=== PATIENT | female | born 1960 | race Caucasian/White ===

== ENCOUNTER 2024-12-07 14:47 | Outpatient (CLI) | payer MEDICARE, SELFPAY | END 2024-12-07 14:48 | disposition home or self-care (01) | LOC: AMB 12-08 13:44 | PROVIDERS: PCP Family Medicine; Visit Provider Emergency Medicine | DX: S09.93XA Unspecified injury of face, initial encounter (principal); S89.91XA Unspecified injury of right lower leg, initial encounter; W09.8XXA Fall on or from other playground equipment, initial encounter; Y93.9 Activity, unspecified; Y92.830 Public park as the place of occurrence of the external cause | CPT/HCPCS: A0998 ==

== ENCOUNTER 2024-12-07 15:14 | Emergency (ER) | payer MEDICARE, SELFPAY ==
[2024-12-07] VITALS (21 sets, daily range): BP systolic 154–217; BP diastolic 79–99; PULSE 58–76; RESP 16–18; TEMP 36.4; O2SAT 95–99; BMI 35.1
--- OUTSIDE RECORDS SUMMARY | 2024-12-07 15:16 | XMS_ITS | Encounter Summary ---
Author Organization [facility] Address [address], [place] [address] Care Team Providers Care Crust Sorter Name Role Phone Osmin Cain MD Primary Care Provider [phone] Encounter Details Date Type Department Care Team (Late st Contact Info) Description 05/02/2012 Scanned History External to Transferred Record, Provider [facility] Social History Tobacco Use Types Packs/Day Years Used Date Smoking Tobacco: Never Assessed Comments Unknown Sex and Gender Information Value Date Recorded Sex Assigned at Not on file Legal Sex Female 11:55 AM CDT Gender Identity Not on file Sexual Orientation Not on file documented as of this encounter Progress Notes * Transferred Record, Provider - 05/02/2012 12:00 AM CDT documented in this encounter Plan of Treatment Not on file documented as of this encounter Visit Diagnoses Not on filedocumented in this encounter Care Teams Crust Sorter Relationship Specialty [place] [address] [place] [address] PCP - General Internal Medicine 06/07/13 documented as of this encounter
--- OUTSIDE RECORDS SUMMARY | 2024-12-07 15:16 | XMS_ITS | Clinical Summary ---
Author Organization [employer] [facility] Address [address] [place] [address] Care Team Providers Care [employer] Supervisor Name Role Phone Marion Young MD Primary Care Provider Debby Quijano MD Unavailable Unavailab Sissy Austin Unavailable [phone] Shayy Schmidt DO Unavailable [phone] Allergies No known active allergies Medications IBUPROFEN 200 MG TAB take 2 tablet (200mg) by oral route every 6 hours as needed with food 0 006 Active blood-glucose meter (BLOOD GLUCOSE MONITORING)Indicati ons:Diabetes mellitus (HC) Dispense meter, test strips, lancets covered by pt ins. 250.00 NIDDM type II - Test 1 time/day 1 Device 0 015 Active acetaminophen (TYLENOL) 325 mg tablet Take 1-2 Tablets (325-650 mg) by mouth every 6 hours if needed for Pain (For mild pain 1st choice. May take either Tylenol tablet or liquid, if both ordered.). Max acetaminophen dose: 4000mg in 24 hrs. 021 Active Blood Pressure Test Kit-Large kitIndications:Type 2 diabetes mellitus with microalbuminuria, without long-term current use of insulin (HC) As directed. Diagnosis hypertension, home use as directed. Any covered by insurance 1 Each 022 Active aspirin (ECOTRIN) 81 mg enteric coated tabletIndications:T ype 2 diabetes mellitus with microalbuminuria, without long-term current use of insulin (HC) Take 1 Tablet (81 mg) by mouth once daily with a meal. 0 023 Active lancets (sageCrowdTouch Delica Plus Lancet) 33 gauge miscIndications:Typ e 2 diabetes mellitus with microalbuminuria, without long-term current use of insulin (HC) USE TO TEST BLOOD GLUCOSE ONE TIME DAILY 100 Each 3 024 Active blood sugar diagnostic (sageCrowdTouch Ultra Test) stripIndications:Ty pe 2 diabetes mellitus with microalbuminuria, without long-term current use of insulin (HC) TEST 1 TIME/DAY. COVERED BY INX. 250.00 NIDDM TYPE II - 100 Each 3 024 Active atorvastatin (LIPITOR) 20 mg tabletIndications:P ure hyperglyceridemia Take 1 Tablet (20 mg) by mouth once daily. 100 Tablet 2 024 Active cyclobenzaprine (FLEXERIL) 10 mg tabletIndications:U pper back pain,Chronic midline low back pain without sciatica Take 1 Tablet (10 mg) by mouth 3 times daily if needed for Muscle Spasm. 025 Active hydroCHLOROthiazide 12.5 mg capsuleIndications: Essential hypertension TAKE 1 CAPSULE BY MOUTH ONCE DAILY. 90 Capsule 2 025 Active losartan 100 mg tabletIndications:M icroalbuminuria,Ess ential hypertension TAKE 1 TABLET BY MOUTH EVERY DAY 90 Tablet 1 025 Active empagliflozin (Jardiance) 10 mg tabletIndications:T ype 2 diabetes mellitus with microalbuminuria, without long-term current use of insulin (HC) Take 1 Tablet (10 mg) by mouth once daily. 100 Tablet 1 025 Active metFORMIN 1,000 mg tabletIndications:T ype 2 diabetes mellitus with microalbuminuria, without long-term current use of insulin (HC) Take 1 Tablet (1,000 mg) by mouth two times daily with meals. 200 Tablet 1 025 Active losartan (COZAAR) 100 mg tabletIndications:M icroalbuminuria,Ess ential hypertension Take 1 Tablet (100 mg) by mouth once daily. 100 Tablet 3 024 11/23 Discontinued metFORMIN (GLUCOPHAGE) 1,000 mg tabletIndications:T ype 2 diabetes mellitus with microalbuminuria, without long-term current use of insulin (HC) TAKE 1 TABLET (1000 MG) BY MOUTH TWICE A DAY WITH MEALS 180 Tablet 025 12/04 Discontinued( Reorder (E-cancel not sent)) empagliflozin (Jardiance) 10 mg tabletIndications:T ype 2 diabetes mellitus with microalbuminuria, without long-term current use of insulin (HC) TAKE 1 TABLET BY MOUTH EVERY DAY 60 Tablet 025 12/04 Discontinued( Reorder (E-cancel not sent)) Active Problems Problem Noted Date Diagnosed Date Carotid aneurysm, right 08/30/2023 Malignant neoplasm of female breast, unspecified estrogen receptor status, unspecified laterality, unspecified site of breast 01/20/2022 Microalbuminuria 11/21/2014 Type 2 diabetes mellitus wit h microalbuminuria, without long-term current use of insulin 08/22/2014 Unspecified essential hypertension 10/19/2007 Adjustment disorder with depressed mood 10/19/19 08 Overview (10/19/2007): no suicidal Pure hyperglyceridemia 01/06/2007 Migraine, unspecified, witho ut mention of intractable migraine without mention of status migrainosus 11/03/2005 Ductal carcinoma in situ of right breast Resolved Problems Problem Noted Date Diagnosed Date Resolved Date Pap smear for cervical cancer screening 03/24/2023 03/08/2024 Overview (03/08/2024): 02/2023 UNS/ HPV negative 02/2024 NIL/HPV neg. Pure hyperglyceridemia 09/28/201709/28 Arthritis of knee 05/24/2008 12/14/2016 Elevated blood pressure read ing without diagnosis of hypertension 09/14/2007 10/19/2007 Synovial cyst, unspecified 09/14/2007 0 12/14/2016 Overview (09/14/2007): Tia Cuevas MD Neurosurgery saw her and then she had this aspirated and injected with steroids 01/27/06 Impaired fasting glucose 02/02/200702/2015 Overview (02/02/2007): 102 105 Other abnormal glucose 01/19/200702/02 Overview (01/19/2007): 102 Depressive disorder, not elsewhere classified 01/07/20 07 10/19/2007 Lumbago 11/11/2005 12/14/2016 Depressive disorder, not elsewhere classified 11/04/19 06 11/03/2005 PAIN IN JOINT, UPPER ARM 04/20/2001 Lumbago 2000 11/03/2005 Cough 03/15/2000 11/03/2005 PAIN, ABDOMINAL 12/17/1999 11/03/2005 Encounters Date Type Department Care Team Description 12/07/2024 Nurse Triage [facility] [address] [place] [address] Marion Young MD Neurologic Problem (Fall, hit head, numbness to right side of face, leg injury) 12/04/2024 8:00 AM CDT Office Visit [facility] [address] [place] [address] Marion Young MD Diabetes 12/04/2024 Travel 12/03/2024 Refill [facility] [address] [place] [address] Marion Young MD Refill Request (Jardiance) 11/21/2024 Refill [facility] [address] [place] [address] Marion Young MD Refill Request (Losartan) 10/12/2024 Orders Only [facility] Scanner 1 scan: (1-Ord) [facility], 10/12/2024 10/09/2024 8:41 AM MEDICAL DEVICE - 10/09/2024 11:59 PM MEDICAL DEVICE Hospital Encounter [facility] [place] [address] [place] [address] Marion Young MD Finkel, Joann M, PT 10/09/2024 Travel 10/05/2024 Refill [facility] [address] [place] [address] Marion Young MD Refill Request (Jardiance, Hydrochlorothiazide ) 09/25/2024 7:54 AM MEDICAL DEVICE - 09/25/2024 11:59 PM MEDICAL DEVICE Hospital Encounter [facility] [place] [address] [place] [address] Marion Young MD Finkel, Joann M, PT 09/25/2024 Travel 09/13/2024 9:17 AM MEDICAL DEVICE - 09/13/2024 11:59 PM MEDICAL DEVICE Hospital Encounter [facility] [place] [address] [place] [address] Marion Young MD Finkel, Joann M, PT 09/13/2024 Travel 09/08/2024 Refill [facility] [address] [place] [address] Marion Young MD Refill Request (Metformin) from Last 3 Months Immunizations Immunization Administration Dates Next Due COVID-19 VACCINE SPIKEVAX (M ODERNA 50MCG/0.5ML) 12YO+ PFS 06/05/2024,08/30/2023 COVID-19 vaccine (Moderna 100mcg/0.5mL) PF, MDV 01/14/2021,12/17/2020 COVID-19 vaccine (Moderna 50mcg/0.5mL) 12YO+ BIVALENT PF, MDV 08/24/2022 COVID-19 vaccine (Moderna [place] tomasa 50mcg/0.25mL) PF, MDV 01/20/2022,08/05/2021 HepA-HepB (Twinrix) 09/28/2017,08/28/2015,2014 Influenza, IIV4 08/24/2022,,04/24/2020,2018,04/25/2015 Influenza, Inactivated AIIV4 (Age 65+ Years) Preserv Free 08/30/2023 Influenza, Inactivated IIV3 (Age 65+ Years) Preserv Free 06/05/2024 Pneumococcal Conj 20-valent (Prevnar 20) 02/28/2024 Td (Age >=7 Years) 12/17/1997 Td, Preservative Free (age > = 7 Years) 01/18/2018,06/01/2005 Tdap 01/19/2007 Zoster (Shingrix-RZV, recombinant) 04/26/2018, Family History Medical History Relation Name Comments Hypertension Father Cancer Maternal Grandmother stomach / colon ? cancer COPD Mother Osteoarthritis Mother Osteoporosis Mother Blood Disease Paternal Aunt lupus and MS Clotting disorder Sister Susana Diabetes Sister Susana Other Sister Susana She's always s ick Anesthesia Problem No Family History Cancer-breast No Family History Cancer-colon No Family History Cancer-ovarian No Family History Cancer-pancreatic No Family History Cancer-prostate No Family History Coronary artery disease No Family History Melanoma No Family History Relation Name Status Comments Father Maternal Grandfather Maternal Grandmother Mother Alive Paternal Aunt Alive Paternal Grandfather Paternal Grandmother Sister Susana Alive Social History Tobacco Use Types Packs/Day Years Used Date Smoking Tobacco: Never Passive Smoke Exposure: Never Smokeless Tobacco: Never Tobacco Cessation:Counseling Given: Yes Alcohol Use Standard Drinks/Week Comments Yes 0 (1 standard drink = 0.6 oz pure alcohol) Twice a month or less; 1-2 drink at a time PHQ-2 Answer Date Recorded PHQ-2 TOTAL SCORE 0 02/28/2024 Social Connections Answer Date Recorded Do you often feel lonely or isolated from those around you? 0 02/28/2024 Financial Resource Strain Answer Date R ecorded Difficulty of Paying Living Expenses 3 02/28/2024 Difficulty of Paying Living Expenses Not on file 02/28/2024 Food Insecurity Answer Date Recorded Do you worry your food will run out before you are able to buy more? 1 02/28/2024 Transportation Needs Answer Date Record ed Does lack of transportation keep you from medica l appointments? 1 02/28/2024 Does lack of transportation keep you from work, meetings or getting things that you need? 1 02/28/2024 Housing Stability Answer Date Recorded What is your housing situation today? 1 02/28/2024 Utilities Answer Date Recorded Do you have trouble paying f or utilities (for example, heat, electricity, water, phone)? 1 02/28/2024 Comments No Sex and Gender Information Value Date Recorded Sex Assigned at Not on file Legal Sex Female 5:25 AM MEDICAL DEVICE Gender Identity Not on file Sexual Orientation Not on file Occupation Industry Job Start Date Job End Date Retired Not on file Not on file Not on file Obstetrics History Para Term AB IAB SAB Ectopic Multiple Livin g Live Births 4 4 4 0 0 0 0 0 4 Date Outcome GA Total Labor Labor/2nd/3rd Weight Sex Type Anes PTL Renetta A1 A5 Name Clin 11/11 Term F Vag Vicki 06/13 Term M Vag Matheau 11/11 Term F Vag Maryse 04/07 Term F Vag Laura Last Filed Vital Signs Vital Sign Reading Time Taken Comments Blood Pressure 118/62 12/04/2024 8:03 AM CDT Pulse 63 12/04/2024 8:03 AM CDT Temperature 36.9 C (98.5 F) 11/25/2021 11:09 AM CDT Respiratory Rate 18 11/25/2021 11:0 9 AM CDT Oxygen Saturation 97% 12/04/2024 8:03 AM CDT Inhaled Oxygen Concentration - - Weight 87.4 kg (192 lb 11.2 oz) 12/04/2024 8:03 AM CDT Height 158 cm (5' 2.21) 02/28/2024 8:04 AM CDT Body Mass Index 35.01 02/28/2024 8:04 AM CDT Plan of Treatment Upcoming Encounters Date Type Department Care Team (Late st Contact Info) Description 06/04/2025 8:40 AM CDT Office Visit [facility] [address] [place], [place] [id number] [place] [address] [place], [place] [id number] Health Maintenance Due Date Last Done Comments RSV vaccine for adults or (1 - Risk 60-74 years 1-dose series) 2018 DEXA/DXA scan for age 65+ 2023 07/28/2021 COVID-19 vaccine series (6 - Moderna risk season) 2024 06/05/2024, 08/30/2023, 08/24/2022, Additional history exists BMI (ht and wt on same day) for age 18+ 02/27/2025 02/28/2024, 08/30/2023, 04/21/2023, Additional history exists Depression screening for age 12+ 02/27/2025 02/28/2024, 02/22/2023, 01/20/2022, Additional history exists Medicare Wellness for age 65+ 02/28/2025 02/28/2024 Mammogram for age 45-75 05/10/2025 05/10/20 24, 04/27/2023, 02/23/2022, Additional history exists Fecal testing sDNA-FIT ([place] guard) for age 45-75 03/05/2026 03/05/2023 Tetanus booster 01/19/2028 01/18/2018, 01/2007, 06/01/2005, Additional history exists Lipids for age 45-75 12/04/2029 12/04/2024, 08/30/2023, 08/24/2022, Additional history exists Tdap Completed 01/19/2007 Zoster (shingles) series for age 50+ Completed 04/26/2018, 01/18/2018 Hepatitis C screening for ag e 18-79 Completed 08/03/2018, 07/17/2014 Pneumococcal series for age 50+ Completed Influenza Vaccine Completed 06/05/2024, , 08/24/2022, Additional history exists Goals Goal Patient Goal Type Associated Problems Recent Progress Patient-Stated? Author BLOOD PRESSURE - MAINTAINS BP less than 140/90 Blood Pressure No Viky Garnica MD Procedures Procedure Name Priority Date/Time Associated Diagnosis Comments URINE ALBUMIN TO CREATININE RATIO, RANDOM Routine 12/04/2024 8:00 AM CDT Type 2 diabetes mellitus with microalbuminuria, without long-term current use of insulin (HC) BASIC METABOLIC PANEL Routine 12/04/2024 7:52 AM CDT Type 2 diabetes mellitus with microalbuminuria, without long-term current use of insulin (HC) Essential hypertension LIPID PANEL W REFLEX MEASURED LDL Routine 12/04/2024 7:52 AM CDT Type 2 diabetes mellitus with microalbuminuria, without long-term current use of insulin (HC) Pure hyperglyceridemia HEMOGLOBIN A1C MONITORING (POCT) Routine 12/04/2024 7:51 AM CDT Type 2 diabetes mellitus with microalbuminuria, without long-term current use of insulin (HC) SCAN-EYE EXAM 10/12/2024 12:00 AM MEDICAL DEVICE XR MAMMO SIMONE BILAT SCREEN Routine 05/10/2024 9:12 AM CDT Visit for screening mammogram SDNA-FIT EXTERNAL (COLOGUARD) Routine 03/05/2023 8:35 AM CDT Screen for colon cancer XR DXA BONE DENSITY 2 SITES AXIAL Routine 07/28/2021 3:46 PM MEDICAL DEVICE Intraductal carcinoma in situ of right breast ANTI HCV Routine 08/03/2018 3:16 PM MEDICAL DEVICE Need for hepatitis C screening test from Last 3 Months or Most Recently Relevant to Health Maintenance Results * URINE ALBUMIN TO CREATININE RATIO, RANDOM (12/04/2024 8:00 AM CDT) ALB RAND URINE 13.9 mg/L 12/04/2024 5:37 PM CDT [facility] CREATININE,URIN E 1.00 g/L 12/04/2024 5:37 PM CDT [facility] ALBUMIN TO CREATININE RATIO,RAND UR 13.9 <30.0 mg/g creat 12/04/2024 5:37 PM CDT [facility] Urine URINE SPECIMEN / Unknown Non-Blood / Unknown 12/04/2024 8:00 AM CDT 12/04/2024 8:00 AM CDT [facility] - 12/04/2024 5:37 PM CDT If Albumin to Creatinine Ratio is elevated, consider the following: Elevations seen with incipient nephropathy associated with diabetes mellitus or hypertension. Stress, exercise,hematuria, and urinary tract infection may also produce elevated results. If clinically indicated, confirm with 24 Hour Albumin to Creatinine Ratio. Marion Young MD URINE Final R esult [facility] [address] [place] [address], * (ABNORMAL) LIPID PANEL W REFLEX MEASURED LDL (12/04/2024 7:52 AM CDT) CHOLESTEROL, TOTAL 161 <200 mg/dL [facility] HDL CHOLESTEROL 45(L) > OR = 50 mg/dL [facility] TRIGLYCERIDES 146 <150 mg/dL [facility] LDL-CHOLESTEROL 91 mg/dL (calc) [facility] Comment: Reference range: <100 Desirable range <100 mg/dL for primary prevention; <70 mg/dL for patients with CHD or diabetic patients with > or = 2 CHD risk factors. LDL-C is now calculated using the Nickolas-Us calculation, which is a validated novel method providing better accuracy than the Friedewald equation in the estimation of LDL-C. Nickolas SS et al. QUNICY. 2013;310(19): 3735-6435 (http://education.[employer].Symtext/faq/VYU950) CHOL/HDLC RATIO 3.6 <5.0 (calc) [facility] NON HDL CHOLESTEROL 116 <130 mg/dL (calc) [facility] Comment: For patients with diabetes plus 1 major ASCVD risk factor, treating to a non-HDL-C goal of <100 mg/dL (LDL-C of <70 mg/dL) is considered a therapeutic option. Blood BLOOD SPECIMEN / Unknown 12/04/2024 7:52 AM CDT 12/04/2024 7:52 AM CDT Marion Young MD CHEMISTRY Final R esult Performing Organization Address City/[facility]/ZIP Co de Phone Number [employer] [facility] [address] [place] [address], [place] [phone] [facility] [address] [place] [address] * (ABNORMAL) BASIC METABOLIC PANEL (12/04/2024 7:52 AM CDT) GLUCOSE 136(H) 65 - 99 mg/dL [facility] Comment: Fasting reference interval For someone without known diabetes, a glucose value >125 mg/dL indicates that they may have diabetes and this should be confirmed with a follow-up test. UREA NITROGEN (BUN) 17 7 - 25 mg/dL [facility] CREATININE 0.64 0.50 - 1.05 mg/dL [facility] EGFR 97 > OR = 60 mL/min/1. 73m2 [facility] BUN/CREATININE RATIO SEE NOTE: 6 - 22 (calc) [facility] Comment: Not Reported: BUN and Creatinine are within reference range. SODIUM 143 135 - 146 mmol/L [facility] POTASSIUM 4.8 3.5 - 5.3 mmol/L [facility] CHLORIDE 110 98 - 110 mmol/L [facility] CARBON DIOXIDE 24 20 - 32 mmol/L [facility] ELECTROLYTE BALANCE 9 7 - 17 mmol/L (calc) [facility] CALCIUM 9.4 8.6 - 10.4 mg/dL [facility] Blood BLOOD SPECIMEN / Unknown 12/04/2024 7:52 AM CDT 12/04/2024 7:52 AM CDT Marion Young MD CHEMISTRY Final R esult [employer] [facility] [address] [place] [address], [place] [phone] [facility] [address] [place] [address] * (ABNORMAL) HEMOGLOBIN A1C MONITORING (POCT) (12/04/2024 7:51 AM CDT) POC HEMOGLOBIN A1C 6.6(H) <6.0 % OF TOTAL HGB [facility] Comment: Any point of care results exhibiting inconsistency with the patient's clinical status should be repeated using a different testing method. Blood BLOOD SPECIMEN / Unknown 12/04/2024 7:51 AM CDT 12/04/2024 7:51 AM CDT us Marion Young MD CHEMISTRY Final R esult [facility] [address] [place] [address], [facility] [address] [place] [address] * SCAN-EYE EXAM (10/12/2024 12:00 AM MEDICAL DEVICE) us Scanner OTHER Final Result * XR MAMMO SIMONE BILAT SCREEN (05/10/2024 9:12 AM CDT) Anatomical Region Laterality Modality BREASTS, Breast Left, Breast Right Bilateral Mammography Impressions 05/10/2024 4:12 PM CDT There is no radiographic evidence for malignancy. Recommend annual mammograms. MAMMOGRAM ASSESSMENT: ACR 2 Benign PATIENTS: You will also receive a letter with your examination results in an easy to read format. If you have questions about your results, please contact your referring provider. Narrative 05/10/2024 4:12 PM CDT For Patients: As a result of the Century Cures Act, medical imaging exams and procedure reports are released immediately into your electronic medical record. You may view this report before your referring provider. If you have questions, please contact your health care provider. XR MAMMO SIMONE BILAT SCREEN [[id number]] CLINICAL HISTORY: This is an asymptomatic 63 y.o. patient. INDICATION FOR EXAM: Mammogram Screening. TECHNIQUE: CC & MLO views were obtained. This study was evaluated with the assistance of Computer-Aided Detection. Breast Tomosynthesis was used in interpretation. COMPARISON FILMS: Yes 04/27/23 [facility] 02/23/22 [facility] FINDINGS: There are scattered areas of fibroglandular density. No suspicious masses or microcalcifications. There are post treatment changes of right breast. Marion Young MD MAMMO Final R esult * SDNA-FIT EXTERNAL (COLOGUARD) (03/05/2023 8:35 AM CDT) NONINV COLON CA DNA+OCC BLD SCRN STL-IMP Negative Negative 03/13/2023 1:15 AM CDT [facility] (CLIA #:[id number]) Comment: NEGATIVE TEST RESULT. A negative Cologuard result indicates a low likelihood that a colorectal cancer (CRC) or advanced adenoma (adenomatous polyps with more advanced pre-malignant features) is present. The chance that a person with a negative Cologuard test has a colorectal cancer is less than 1 in 1500 (negative predictive value >99.9%) or has an advanced adenoma is less than 5.3% (negative predictive value 94.7%). These data are based on a prospective cross-sectional study of 10,000 individuals at average risk for colorectal cancer who were screened with both Cologuard and colonoscopy. (Chance Marie. et al, N Engl J Med 2014;370(14):8749-2262) The normal value (reference range) for this assay is negative. COLOGUARD RE-SCREENING RECOMMENDATION: Periodic colorectal cancer screening is an important part of preventive healthcare for asymptomatic individuals at average risk for colorectal cancer. Following a negative Cologuard result, the [place] [employer] and U.S. Multi-Society Task Force screening guidelines recommend a Cologuard re-screening interval of 3 years. References: [place] [employer] Guideline for Colorectal Cancer Screening: https://www.cancer.org/cancer/lsgbs-wrkjpz-ynuohy/uyhenbgmj-egnabcfpm-munklff/ac s-rec ommendations.html.; Chan DK, Idalia CORBETT, Khai GARCIA, Colorectal Cancer Screening: Recommendations for Physicians and Patients from the U.S. Multi-Society Task Force on Colorectal Cancer Screening , Am J Gastroenterology 2017; 112:3528-8549. TEST DESCRIPTION: Composite algorithmic analysis of stool DNA-biomarkers with hemoglobin immunoassay. Quantitative values of individual biomarkers are not reportable and are not associated with individual biomarker result reference ranges. Cologuard is intended for colorectal cancer screening of adults of either sex, 45 years or older, who are at average-risk for colorectal cancer (CRC). Cologuard has been approved for use by the U.S. FDA. The performance of Cologuard was established in a cross sectional study of average-risk adults aged 50-84. Cologuard performance in patients ages 45 to 49 years was estimated by sub-group analysis of near-age groups. Colonoscopies performed for a positive result may find as the most clinically significant lesion: colorectal cancer [4.0%], advanced adenoma (including sessile serrated polyps greater than or equal to 1cm diameter) [20%] or non- advanced adenoma [31%]; or no colorectal neoplasia [45%]. These estimates are derived from a prospective cross-sectional screening study of 10,000 individuals at average risk for colorectal cancer who were screened with both Cologuard and colonoscopy. (Chance Marie. et al, N Engl J Med 2014;370(14):1694-0449.) Cologuard may produce a false negative or false positive result (no colorectal cancer or precancerous polyp present at colonoscopy follow up). A negative Cologuard test result does not guarantee the absence of CRC or advanced adenoma (pre-cancer). The current Cologuard screening interval is every 3 years. ([place] [employer] and U.S. Multi-Society Task Force). Cologuard performance data in a 10,000 patient pivotal study using colonoscopy as the reference method can be accessed at the following location: www.[employer].Symtext/results. Additional description of the Cologuard test process, warnings and precautions can be found at www.Contents Firstrd.com. Stool specimen (specimen) (Rectum) 03/05/2023 8:35 AM CDT 03/06/2023 5:27 PM CDT us Marion Magali Hannah MD URINE Final R esult [facility] (CLIA #:[id number]) [address] [id number] [address], * XR DXA BONE DENSITY 2 SITES AXIAL (07/28/2021 3:46 PM MEDICAL DEVICE) Anatomical Region Laterality Modality Spine, HIPS, HIPL, HIPR Computed Radiography 07/28/2021 3:46 PM MEDICAL DEVICE Narrative 07/28/2021 9:53 PM MEDICAL DEVICE For Patients: As a result of the Century Cures Act, medical imaging exams and procedure reports are released immediately into your electronic medical record. You may view this report before your referring provider. If you have questions, please contact your health care provider. EXAM: XR DXA BONE DENSITY 2 SITES AXIAL LOCATION: [facility] DATE/TIME: 07/28/2021 3:46 PM INDICATION: I. Other (screening-at minimum one option in 2-5 must be selected) - z13.820. Intraductal Carcinoma In Situ Of Right Breast COMPARISON: None. TECHNIQUE: Dual-energy x-ray absorptiometry performed with routine technique. FINDINGS: Lumbar Spine: L1-L4: BMD: 1.234 g/cm2. T-score: 0.5. Z-score: 1.1 RIGHT Hip Total: BMD: 0.951 g/cm2. T-score: -0.4. Z-score: 0.1 RIGHT Hip Femoral neck: BMD: 0.999 g/cm2. T-score: -0.3. Z-score: 0.6 LEFT Hip Total: BMD: 1.060 g/cm2. T-score: 0.4. Z-score: 1.0 LEFT Hip Femoral neck: BMD: 1.067 g/cm2. T-score: 0.2. Z-score: 1.1 WHO Criteria: Normal: T score at or above -1 SD Osteopenia: T score between -1 and -2.5 SD Osteoporosis: T score at or below -2.5 SD FRAX Results: 10 year probability of major osteoporotic fracture is 12.8%, and of hip fracture is 0.2%, based on right femoral neck BMD. RECOMMENDATIONS: Consider treatment if major osteoporotic fracture score is greater than or equal to 20%. Consider treatment if hip fracture score is greater than or equal to 3%. IMPRESSION: NORMAL. Bone mineral density measurements are within normal limits using T score. Procedure Note Rai Sandoval MD - 07/28/2021 For Patients: As a result of the Cures Act, medical imagingexams and procedure reports are released immediately into your electronicmedical record. You may view this report before your referring provider.If you have questions, please contact your health care provider. EXAM: XR DXA BONE DENSITY 2 SITES AXIAL LOCATION: [facility] DATE/TIME: 07/28/2021 3:46 PM INDICATION: I. Other (screening-at minimum one option in 2-5 must beselected) - z13.820. Intraductal Carcinoma In Situ Of Right Breast COMPARISON: None. TECHNIQUE: Dual-energy x-ray absorptiometry performed with routinetechnique. FINDINGS: Lumbar Spine: L1-L4: BMD: 1.234 g/cm2. T-score: 0.5. Z-score: 1.1 RIGHT Hip Total: BMD: 0.951 g/cm2. T-score: -0.4. Z-score: 0.1 RIGHT Hip Femoral neck: BMD: 0.999 g/cm2. T-score: -0.3. Z-score: 0.6 LEFT Hip Total: BMD: 1.060 g/cm2. T-score: 0.4. Z-score: 1.0 LEFT Hip Femoral neck: BMD: 1.067 g/cm2. T-score: 0.2. Z-score: 1.1 WHO Criteria: Normal: T score at or above -1 SD Osteopenia: T score between -1 and -2.5 SD Osteoporosis: T score at or below -2.5 SD FRAX Results: 10 year probability of major osteoporotic fracture is 12.8%,and of hip fracture is 0.2%, based on right femoral neck BMD. RECOMMENDATIONS: Consider treatment if major osteoporotic fracture score is greater than orequal to 20%. Consider treatment if hip fracture score is greater than orequal to 3%. IMPRESSION: NORMAL. Bone mineral density measurements are within normallimits using T score. us Sissy PINA DEXA Final Re sult * ANTI HCV (08/03/2018 3:16 PM MEDICAL DEVICE) HEPATITIS C ANTIBODY Non-React felix Non-React felix 08/04/2018 7:50 PM MEDICAL DEVICE [facility] Comment:Antibodies to HCV no t detected; does not exclude the possibility of exposure to HCV. Blood BLOOD SPECIMEN / Unknown Butterfly / Unknown 08/03/2018 3:16 PM MEDICAL DEVICE 08/03/2018 3:16 PM MEDICAL DEVICE us Marion Young MD SEND OUTS Final R esult [facility] [address] [place] [address], [place] from Last 3 Months or Most Recently Relevant to Health Maintenance Insurance [facility] AETNA Advance Directives * Full Code (Latest Code Status on File) Date Activated Date Inactivated Comments 04/22/2021 12:48 PM 04/22/2021 7:18 PM Question Answer Comments Code Status Discussion: Not Discussed * Full Code Date Activated Date Inactivated Comments 04/10/2021 8:56 AM 04/10/2021 6:19 PM Question Answer Comments Code Status Discussion: Not Discussed Care Teams Oil Well Services Supervisor Relationship Specialty [place] [address] [place] [address] PCP - General Family Practice 07/20/16 [place] [address] [place] [address] Surgery - General 03/11/21 Sissy Nam [employer]BS [address] [place] [address] Oncology 05/09/21 [place] [address] Radiation Oncology 05/09/21
--- OUTSIDE RECORDS SUMMARY | 2024-12-07 15:16 | XMS_ITS | Encounter Summary ---
Author Organization [facility] Address [address] [place] [address] Care Team Providers Care Senior Hr Business Partner Name Role Phone Osmin Cain MD Primary Care Provider [phone] Encounter Details Date Type Department Care Team (Late st Contact Info) Description 02/07/2013 Consent for Procedure/Treatme nt [facility] INFORMED CONSENT RECORD Social History Tobacco Use Types Packs/Day Years Used Date Smoking Tobacco: Never Assessed Comments Unknown Sex and Gender Information Value Date Recorded Sex Assigned at Not on file Legal Sex Female 11:55 AM CDT Gender Identity Not on file Sexual Orientation Not on file documented as of this encounter Progress Notes * [facility], PROVIDER - 02/07/2013 12:00 AM CDT documented in this encounter Plan of Treatment Not on file documented as of this encounter Visit Diagnoses Not on filedocumented in this encounter Care Teams Senior Hr Business Partner Relationship Specialty [place] [address] [place] [address] PCP - General Internal Medicine 06/07/13 documented as of this encounter
--- OUTSIDE RECORDS SUMMARY | 2024-12-07 15:16 | XMS_ITS | Clinical Summary ---
Author Organization [facility] Address [address] [address] Care Team Providers Care Waste Management Recycling Technician Name Role Phone Osmin Cain MD Primary Care Provider [phone] Source Comments You are receiving this document as you are listed as the primary care provider,follow-up provider, or the patient has been referred to you for consultation.This is in compliance with the Medicare and[place] Health[employer] EHR Incentive Program,which states Providers who transition their patient to another setting of careor provider of care or refers their patient to another provider of care shouldprovide summary care record for each transition of care or referral. [facility] Allergies No known active allergies Medications losartan (COZAAR) 100 MG tablet Take 100 mg by mouth. 12/14/2016 Active atorvastatin (LIPITOR) 20 MG tablet Take 20 mg by mouth. 12/14/2016 Active Active Problems Problem Noted Date Diagnosed Date Elevated BP 03/29/2013 Benign neoplasm of colon 02/07/2013 Occult blood positive stool 12/30/2012 Prediabetes 12/29/2012 Hypertriglyceridemia 12/29/2012 Metabolic syndrome 11/18/2012 Degenerative arthritis of knee 11/02/2012 Obesity 11/02/2012 Resolved Problems Problem Noted Date Diagnosed Date Resolved Date Degenerative arthritis of left knee 11/14/2012 11/18/2012 Hyperlipidemia with target LDL less than 130 3 11/18/2012 Overview (04/24/2015): ICD 10 HTN (hypertension), benign 11/02/2012 0 12/29/2012 Immunizations Immunization Administration Dates Next Due Tdap 04/21/2013 Social History Tobacco Use Types Packs/Day Years Used Date Smoking Tobacco: Never Smokeless Tobacco: Never Alcohol Use Standard Drinks/Week Comments Yes 0 (1 standard drink = 0.6 oz pur e alcohol) once in a while Comments Unknown Sex and Gender Information Value Date Recorded Sex Assigned at Not on file Legal Sex Female 11:55 AM CDT Gender Identity Not on file Sexual Orientation Not on file Last Filed Vital Signs Vital Sign Reading Time Taken Comments Blood Pressure 163/93 06/13/2017 2:18 PM CDT Pulse 77 06/13/2017 2:18 PM CDT Temperature 36.9 C (98.5 F) 06/13/2017 2:18 PM CDT Respiratory Rate 16 06/13/2017 2:18 PM CDT Oxygen Saturation 98% 05/11/2013 10:57 AM CDT Inhaled Oxygen Concentration - - Weight 96.6 kg (213 lb) 06/13/2017 2:18 PM CDT Height 160 cm (5' 3) 06/13/2017 2:18 PM CDT Body Mass Index 37.73 06/13/2017 2:18 PM CDT Plan of Treatment Health Maintenance Due Date Last Done Comments Hep C Screening (Preventive Services) 1960 Adult Preventive Visit 1976 Pneumococcal Vaccine 50+ Yrs (1 of 1 - PCV) 2008 Zoster/Shingles Vaccine (1 o f 2) 2008 Mammogram 01/20/2013 01/21/2012 Colonoscopy 02/08/2016 02/07/2013, 02/07/2013 Cholesterol 11/02/2017 11/02/2012 DTaP/Tdap/Td Vaccine (3 - Tdap) 04/21/2023 04/21/2013, 01/19/2007, 12/17/1997 COVID-19 Vaccine ( - 2023-2 5 season) 2024 Influenza Vaccine (#1) 2024 RSV Vaccine (1 - 1-dose 75+ series) 2033 HepA Vaccine Aged Out 08/28/2015, 06/07/2015 No longer eligible based on patient's age to complete this topic HepB Vaccine Aged Out No longer eligi ble based on patient's age to complete this topic Hib Vaccine Aged Out No longer eligi ble based on patient's age to complete this topic IPV (Polio) Vaccine Aged Out No longe r eligible based on patient's age to complete this topic MCV4 Vaccine Aged Out No longer eligi ble based on patient's age to complete this topic Meningococcal B Vaccine Aged Out No l onger eligible based on patient's age to complete this topic Procedures Procedure Name Priority Date/Time Associated Diagnosis Comments COLONOSCOPY Routine 02/07/2013 8:30 AM CDT Nonspecific (abnormal) findings on radiological and other examination of gastrointestinal tract LIPID PANEL & DIRECT LDL (IF NEEDED) Routine 11/02/2012 9:53 AM CDT Hyperlipidemia LDL goal < 130 from Last 3 Months or Most Recently Relevant to Health Maintenance Results * COLONOSCOPY [[id number]] (02/07/2013 8:30 AM CDT) 02/07/2013 8:30 AM CDT Narrative GI ([facility]) - 02/07/2013 9:00 AM CDT Indications: Heme positive stool Providers: Jassi Sierra MD, Katalina Joseph RN Referring MD: Medicines: Fentanyl IV 100 mcgs, Versed/Midazolam IV 4 mgs Complications: No immediate complications. Procedure: Pre-Anesthesia Assessment: - The risks and benefits of the procedure and the sedation options and risks were discussed with the patient. All questions were answered and informed consent was obtained. - Pre-procedure physical examination revealed no contraindications to sedation. - Airway Examination: normal oropharyngeal airway and neck mobility. - Mental Status Examination: normal. Airway Examination: normal oropharyngeal airway and neck mobility. Respiratory Examination: clear to auscultation. CV Examination: normal. - ASA Grade Assessment: I - A normal, healthy patient. After I obtained informed consent, the scope was passed under direct vision. Prior to sedation, patient identity and procedure was reverified. Throughout the procedure, the patient's blood pressure, pulse, and oxygen saturations were monitored continuously. The Colonoscope was introduced through the anus and advanced to the cecum, identified by appendiceal orifice & ileocecal valve. The colonoscopy was performed without difficulty. The patient tolerated the procedure well. The quality of the bowel preparation was excellent. Findings: A few small-mouthed diverticula were found in the sigmoid colon. Four sessile polyps were found in the transverse colon and in the ascending colon. The polyps were 5 to 9 mm in size. These polyps were removed with a hot snare. Resection and retrieval were complete. A sessile polyp was found in the sigmoid colon. The polyp was 4 mm in size. The polyp was removed with a hot snare. Resection and retrieval were complete. A semi-sessile polyp was found in the sigmoid colon. The polyp was 14 mm in size. The polyp was removed with a hot snare. Resection and retrieval were complete. Area was successfully injected with 2 mL Natalie ink for tattooing. Internal hemorrhoids were found during retroflexion and were mild. The exam was otherwise without abnormality. Impression: - Diverticulosis in the sigmoid colon. - Four 5 to 9 mm polyps in the transverse colon and in the ascending colon. Resected and retrieved. - One 4 mm polyp in the sigmoid colon. Resected and retrieved. - One 14 mm polyp in the sigmoid colon. Resected and retrieved. - Internal hemorrhoids. - The examination was otherwise normal. Recommendation: - Use fiber, for example Citrucel, Fibercon, Konsyl or Metamucil. - Await pathology results. - No aspirin, ibuprofen, naproxen, or other non-steroidal anti-inflammatory drugs for 1 week after polyp removal. - Please inform your siblings and children that you had a polyp, so they should have colonoscopy when they turn 40 years old. Procedure Code(s): --- Professional --- 60976, Colonoscopy, flexible, proximal to splenic flexure; with removal of tumor(s), polyp(s), or other lesion(s) by snare technique 82207, 59, Colonoscopy, flexible, proximal to splenic flexure; with directed submucosal injection(s), any substance Diagnosis Code(s): --- Professional --- 211.3, Benign neoplasm of colon 455.0, Internal hemorrhoids without mention of complication 792.1, Nonspecific abnormal findings in stool contents 562.10, Diverticulosis of colon (without mention of hemorrhage) CPT (R) 2011 [employer]. All Rights Reserved. The codes documented in this report are preliminary and upon carpenter railcar review may be revised to meet current compliance requirements. Attending Participation: Jassi Sierra MD 02/07/2013 9:00 AM Number of Addenda: 0 Note Initiated On: 02/07/2013 8:30 AM Procedure Note Jassi Sierra MD - 02/07/2013 Indications: Heme positive stool Providers: Jassi Sierra MD, Katalina Joseph, RN Referring MD: Medicines: Fentanyl IV 100 mcgs, Versed/Midazolam IV 4 mgs Complications: No immediate complications. Procedure: Pre-Anesthesia Assessment: - The risks and benefits of the procedure and the sedation options and risks were discussed with the patient. All questions were answered and informed consent was obtained. - Pre-procedure physical examination revealed no contraindications to sedation. - Airway Examination: normal oropharyngeal airway and neck mobility. - Mental Status Examination: normal. Airway Examination: normal oropharyngeal airway and neck mobility. Respiratory Examination: clear to auscultation. CV Examination: normal. - ASA Grade Assessment: I - A normal, healthypatient. After I obtained informed consent, the scope was passed under direct vision. Prior to sedation, patient identity and procedure was reverified. Throughout the procedure, the patient's blood pressure, pulse, and oxygen saturations were monitored continuously. The Colonoscope was introduced through the anus and advanced to the cecum, identified by appendiceal orifice & ileocecal valve. The colonoscopy was performed without difficulty. The patient tolerated the procedure well. The quality of the bowel preparation was excellent. Findings: A few small-mouthed diverticula were found in the sigmoid colon. Four sessile polyps were found in the transverse colon and in the ascending colon. The polyps were 5 to 9 mm in size. These polyps were removed with a hot snare. Resection and retrieval were complete. A sessile polyp was found in the sigmoid colon. The polyp was 4 mm in size. The polyp was removed with a hot snare. Resection and retrieval were complete. A semi-sessile polyp was found in the sigmoid colon. The polyp was 14 mm in size. The polyp was removed with a hot snare. Resection and retrieval were complete. Area was successfully injected with 2 mL Natalie ink for tattooing. Internal hemorrhoids were found during retroflexion and were mild. The exam was otherwise without abnormality. Impression: - Diverticulosis in the sigmoid colon. - Four 5 to 9 mm polyps in the transverse colon and in the ascending colon. Resected and retrieved. - One 4 mm polyp in the sigmoid colon. Resected and retrieved. - One 14 mm polyp in the sigmoid colon. Resected and retrieved. - Internal hemorrhoids. - The examination was otherwise normal. Recommendation: - Use fiber, for example Citrucel, Fibercon, Konsyl or Metamucil. - Await pathology results. - No aspirin, ibuprofen, naproxen, or other non-steroidal anti-inflammatory drugs for 1 week after polyp removal. - Please inform your siblings and children that you had a polyp, so they should have colonoscopy when they turn 40 years old. Procedure Code(s): --- Professional --- 52741, Colonoscopy, flexible, proximal to splenic flexure; with removal of tumor(s), polyp(s), or other lesion(s) by snare technique 12622, 59, Colonoscopy, flexible, proximal to splenic flexure; with directed submucosal injection(s), any substance Diagnosis Code(s): --- Professional --- 211.3, Benign neoplasm of colon 455.0, Internal hemorrhoids without mention of complication 792.1, Nonspecific abnormal findings in stoolcontents 562.10, Diverticulosis of colon (without mention of hemorrhage) CPT (R) 2011 [employer]. All Rights Reserved. The codes documented in this report are preliminary and upon carpenter railcar review may be revised to meet current compliance requirements. Attending Participation: Jassi Sierra MD 02/07/2013 9:00 AM Number of Addenda: 0 Note Initiated On: 02/07/2013 8:30 AM Jassi Sierra MD DIGESTIVE CARE Edited Res ult - Final GI ([facility]) [place], [place] * (ABNORMAL) LIPID PANEL AND DIRECT LDL(IF NEEDED) (11/02/2012 9:53 AM CDT) Cholesterol 204(H) 0 - 199 mg/dl [facility] Triglyceride 225(H) 0 - 149 mg/dl [facility] HDL 47 >40 mg/dl [facility] LDL, Calc. 112 0 - 129 mg/dl [facility] Non HDL Chol, Calc 157 mg/dl [facility] Hours Fasting 14 hours [facility] 11/02/2012 9:53 AM CDT 11/02/2012 10:06 AM CDT us Sabine Ferrell MD LAB_1 Final Res ult [facility] [address] [id number] from Last 3 Months or Most Recently Relevant to Health Maintenance Insurance [facility] Care Teams Waste Management Recycling Technician Relationship Specialty [place] [address] [place] [address] PCP - General Internal Medicine 06/07/13
--- OUTSIDE RECORDS SUMMARY | 2024-12-07 15:16 | XMS_ITS | Clinical Summary ---
Author Organization [facility] Address [address] [place] [address]. [place] [address] Care Team Providers Care Counselling Psychologist Name Role Phone Marion Young MD Primary Care Provider Allergies No known active allergies Medications Atorvastatin Calcium (LIPITOR PO) Active Losartan Potassium (COZAAR PO) Take 100 mg by mouth Active HYDROcodone-uriel taminophen (NORCO) 5-325 MG per tablet Take 1-2 tablets by mouth every 4 hours as needed for moderate to severe pain 15 tablet 06/13/2017 Active Social History Tobacco Use Types Packs/Day Years Used Date Smoking Tobacco: Never Assessed Adolescent Education Answer Date Record ed Getting School Help Needed Not on file 05/30 Comments Unknown Sex and Gender Information Value Date Recorded Sex Assigned at Not on file Legal Sex Female 3:32 AM LUBE TECHNICIAN Gender Identity Not on file Sexual Orientation Not on file Last Filed Vital Signs Vital Sign Reading Time Taken Comments Blood Pressure 158/79 08/10/2024 5:32 PM LUBE TECHNICIAN Pulse 75 08/10/2024 5:32 PM LUBE TECHNICIAN Temperature 36.3 C (97.4 F) 08/10/2024 10:19 AM LUBE TECHNICIAN Respiratory Rate 18 08/10/2024 5:32 PM LUBE TECHNICIAN Oxygen Saturation 98% 08/10/2024 5:32 PM LUBE TECHNICIAN Inhaled Oxygen Concentration - - Weight 88.1 kg (194 lb 3.6 oz) 08/10/2024 10:19 AM LUBE TECHNICIAN Height 157.5 cm (5' 2) 08/10/2024 10:19 AM LUBE TECHNICIAN Body Mass Index 35.52 08/10/2024 10:19 AM LUBE TECHNICIAN Plan of Treatment Health Maintenance Due Date Last Done Comments ADVANCE CARE PLANNING 1960 ANNUAL REVIEW OF HM ORDERS 1960 CT COLONOGRAPHY 1960 FIT 1960 FLEX SIG 1960 LIPID 1960 COLONOSCOPY 1968 FALL RISK ASSESSMENT 2023 PHQ-2 (once per calendar year) 2024 COVID-19 Vaccine ( season) 2024 06/05/2024, 08/30/2023, 08/24/2022, Additional history exists MEDICARE ANNUAL WELLNESS VISIT 02/27/2025 02/28/2024, 02/22/2023, 01/20/2022, Additional history exists COLORECTAL CANCER SCREENING 03/05/2026 sDNA (Cologuard) 03/05/2026 03/05/2023, 03/05/2023 MAMMO SCREENING 05/10/2026 05/10/2024, 04/17, 04/27/2023, Additional history exists DIABETES SCREENING 08/10/2027 08/10/2024, 0 03/25/2023, 12/06/2022, Additional history exists DTAP/TDAP/TD IMMUNIZATION (4 - Td or Tdap) 01/19/2028 01/18/2018, 04/21/2013, 01/19/2007, Additional history exists RSV VACCINE (1 - 1-dose 75+ series) 2033 DEXA 07/28/2036 07/28/2021 ZOSTER IMMUNIZATION Completed 04/26/2018, 8 HEPATITIS C SCREENING Completed 08/03/2018 PAP Discontinued 02/22/2023 Pneumococcal Vaccine: 50+ Years Completed 02/28/2024 INFLUENZA VACCINE Completed 06/05/2024, , 08/24/2022, Additional history exists HPV IMMUNIZATION Aged Out No longer e ligible based on patient's age to complete this topic MENINGITIS IMMUNIZATION Aged Out No l onger eligible based on patient's age to complete this topic Procedures Procedure Name Priority Date/Time Associated Diagnosis Comments BASIC METABOLIC PANEL STAT 08/10/2024 10:26 AM LUBE TECHNICIAN from Last 3 Months or Most Recently Relevant to Health Maintenance Results * (ABNORMAL) Basic metabolic panel (BMP) (08/10/2024 10:26 AM LUBE TECHNICIAN) Sodium 142 135 - 145 mmol/L 08/10/2024 10:58 AM LUBE TECHNICIAN LABORATORY Potassium 4.6 3.4 - 5.3 mmol/L 08/10/2024 10:58 AM [facility] Chloride 105 98 - 107 mmol/L 08/10/2024 10:58 AM [facility] Carbon Dioxide (CO2) 24 22 - 29 mmol/L 08/10/2024 10:58 AM [facility] Anion Gap 13 7 - 15 mmol/L 08/10/2024 10:58 AM [facility] Urea Nitrogen 15.7 8.0 - 23.0 mg/dL 08/10/2024 10:58 AM [facility] Creatinine 0.74 0.51 - 0.95 mg/dL 08/10/2024 10:58 AM [facility] GFR Estimate 89 >60 mL/min/1.7 3m2 08/10/2024 10:58 AM [facility] Comment:eGFR calculated us2020 CKD-EPI equation. Calcium 9.9 8.8 - 10.4 mg/dL 08/10/2024 10:58 AM [facility] Comment:Reference intervals for this test were updated on 02/29/2024 to reflect our healthy population more accurately. There may be differences in the flagging of prior results with similar values performed with this method. Those prior results can be interpreted in the context of the updated reference intervals. Glucose 186(H) 70 - 99 mg/dL 08/10/2024 10:58 AM [facility] Blood STRUCTURE OF LEFT UPPER LIMB / Unknown Venipuncture / Unknown 08/10/2024 10:26 AM LUBE TECHNICIAN 08/10/2024 10:36 AM LUBE TECHNICIAN us Evy Clarke MD LAB - BLOOD ORDERABLES Fin al Result LABORATORY [facility] [address] [facility] (1st floor, no room number) [place] [address], [facility] from Last 3 Months or Most Recently Relevant to Health Maintenance Insurance [employer] MEDICARE ADVANTAGE Care Teams Counselling Psychologist Relationship Specialty [place] [address] [place] [address] PCP - General Family Practice 06/13/17
--- NOTE | 2024-12-07 15:36 | CRLHL7_ITS ---
For Patients: As a result of the Century Cures Act, medical imaging exams and procedure reports are released immediately into your electronic medical record. You may view this report before your referring provider. If you have questions, please contact your health care provider. INDICATION: Fall, tibia injury TECHNIQUE: Tibia-fibula radiograph 2 views right COMPARISON: None FINDINGS: Bone: No acute fractures or aggressive bone lesions are identified. Joint: Moderate osteoarthritis of the medial and patellofemoral compartments are partially visualized. The ankle joint is unremarkable. No significant joint effusion is seen. Soft tissue: Soft tissue swelling and subcutaneous edema is present along the lateral distal calf. No radiopaque foreign bodies are seen. IMPRESSION: 1. No acute osseous injuries or abnormalities are noted. Dictated by Rafael Dominique MD @ 12/07/2024 4:50:49 PM Dictated by: Rafael Dominique MD @ 12/07/2024 16:50:50 (Electronically Signed)
--- NOTE | 2024-12-07 15:36 | CRLHL7_ITS ---
For Patients: As a result of the Cures Act, medical imaging exams and procedure reports are released immediately into your electronic medical record. You may view this report before your referring provider. If you have questions, please contact your health care provider. INDICATION: Fall. History of aneurysm. TECHNIQUE: CT of the head without contrast. Coronal and sagittal reformats are included. COMPARISON: Head CT from 04/21/2015. FINDINGS: No acute intracranial hemorrhage. No mass effect or midline shift. No hydrocephalus or extra-axial collections. White matter is within normal limits for age. Small nodules along the anterior superior falx, possibly meningiomas. Also present on prior CT. No acute osseous abnormalities. Left orbital floor fracture with air-fluid level within the maxillary sinuses. No entrapment of the rectus muscle. Left facial soft tissue swelling. IMPRESSION: IMPRESSION: 1. No acute intracranial hemorrhage. 2. Left orbital floor fracture with no entrapment of the rectus muscle. Traumatic left maxillary sinus air-fluid level. Please note that all CT scans at this facility use dose modulation, iterative reconstruction, and/or weight-based dosing when appropriate to reduce radiation dose to as low as reasonably achievable. Dictated by Kush Brody MD @ 12/07/2024 4:56:27 PM (Electronically Signed)
--- NOTE | 2024-12-07 15:37 | ED_ITS ---
HPI - Fall General Chief Complaint: Fall/Minor Trauma Stated Complaint: fall, leg injury Time Seen by Provider: 12/07/24 15:18 History of Present Illness HPI Narrative: This 64-year-old female comes in for evaluation of injuries from a fall that occurred about 4 hours prior to arrival. She was playing with children in a place that and slipped and fell hitting her head and injuring her right lower leg. She did not have loss of consciousness. She was able to get up and ambulate afterwards. She has some bruising and swelling under her left eye and also on the lateral aspect of her right leg about a [address] up from the ankle to the knee. She does not have any neurologic deficits. She states that she is monitoring a cerebral aneurysm that was found accidentally. She does report a headache but not severe and again without any neurologic deficits. Related Data Home Medications ?Medication ?Instructions ?Recorded ?Confirmed atorvastatin 20 mg tablet 20 mg PO DAILY 12/07/24 12/07/24 [facility] 12/07/24 Ultra Test strips) empagliflozin 10 mg tablet 10 mg PO DAILY 12/07/24 12/07/24 (Jardiance) hydrochlorothiazide 12.5 mg capsule 12.5 mg PO DAILY 12/07/24 12/07/24 lancets 33 gauge (OneTouch Delica 12/07/24 12/07/24 Plus Lancet) losartan 100 mg tablet 100 mg PO DAILY 12/07/24 12/07/24 metformin 1,000 mg tablet 1,000 mg PO BID 12/07/24 12/07/24 Previous Rx's ?Medication ?Instructions ?Recorded ketorolac 10 mg tablet 10 mg PO TID 5 days #15 tabs 12/07/24 Allergies Allergy/AdvReac Type Severity Reaction Status Date / Time No Known Drug Allergies Allergy Verified 12/07/24 15:23 Review of Systems Status of ROS: Reports: 10 or more systems reviewed and unremarkable except as noted in History and below Narrative: Constitutional: No fevers, no weight gain or loss. Eyes: No discharge. No vision changes. HENT: No congestion, no sore throat, no ear pain. Cardiovascular: No chest pain, no palpitations. Respiratory: No shortness of breath, no wheezes, no cough. Gastrointestinal: No abdominal pain, no vomiting, no diarrhea. Genitourinary: No dysuria, no hematuria. Musculoskeletal: Normal range of motion. Skin: No rashes, no pruritis. Neurological: No dizziness, weakness, sensory change, speech change. Endo/Heme/Allergies: No bruising or bleeding. No polydipsia. Pysch: no suicidality, no anxiety, no insomnia. All other systems reviewed and are negative. Exam Narrative: Exam Narrative: Constitutional: Well-developed, well-nourished, no acute distress. HEENT: Mild swelling and bruising below her left eye. Neck: Normal range of motion. Nontender. Supple. Heart: Regular. No murmurs. Normal rate. Intact distal pulses. Lungs: Clear to auscultation. No chest discomfort. No wheezes, rhonchi, or rales. Abdomen: Normal bowel sounds. Nontender. No rebound tenderness. Genitalia: Deferred. Back: No midline tenderness. Normal range of motion. Extremities: Normal range of motion. There is swelling with ecchymosis on the lateral aspect of her right lower leg about a [address] up from the ankle to the knee. No pain when palpating over the medial and lateral malleoli of the right ankle. Skin: Intact. No rash. Warm. No erythema or pallor. Neurologic: No altered sensation. No weakness. Alert and oriented. Psychiatric: No suicidality. No anxiety or depression. No insomnia. Nursing notes and vitals signs are reviewed. Const: Vital Signs, click to edit/add: Vital Signs - 24 hr 12/07/24 15:19 12/07/24 15:27 12/07/24 15:30 Temperature 97.6 F Pulse Rate 66 63 Pulse Rate [Pulse Oximeter] 76 Respiratory Rate 16 18 Blood Pressure Blood Pressure [Ri ght Upper Arm] 217/99 H Pulse Oximetry 98 99 98 Oxygen Delivery Me thod Room Air 12/07/24 15:41 12/07/24 15:41 12/07/24 15:45 Temperature Pulse Rate 66 66 63 Pulse Rate [Pulse Oximeter] Respiratory Rate Blood Pressure 208/93 H 208/93 H Blood Pressure [Ri ght Upper Arm] Pulse Oximetry 98 98 98 Oxygen Delivery Me thod 12/07/24 16:00 12/07/24 16:02 12/07/24 16:15 Temperature Pulse Rate 62 62 63 Pulse Rate [Pulse Oximeter] Respiratory Rate Blood Pressure 181/85 H Blood Pressure [Ri ght Upper Arm] Pulse Oximetry 97 96 97 Oxygen Delivery Me thod 12/07/24 16:31 12/07/24 16:33 12/07/24 16:35 Temperature Pulse Rate 64 61 Pulse Rate [Pulse Oximeter] 60 Respiratory Rate 16 Blood Pressure 155/79 H Blood Pressure [Ri ght Upper Arm] 155/79 H Pulse Oximetry 97 98 98 Oxygen Delivery Me thod Course Vital Signs Vital signs: Initial Vital Signs Temperature 97.6 F 12/07/24 15:19 Temperature Source Temporal Artery Scan 12/07/24 15:19 Pulse Rate 76 12/07/24 15:19 Respiratory Rate 16 12/07/24 15:19 Blood Pressure 217/99 H 12/07/24 15:19 Blood Pressure Mean 138 H 12/07/24 15:19 Blood Pressure Position Sitting 12/07/24 15:19 Pulse Oximetry 98 12/07/24 15:19 Oxygen Delivery Method Room Air 12/07/24 15:19 Vital Signs Temperature 97.6 F 12/07/24 15:19 Pulse Rate 76 12/07/24 15:19 Respiratory Rate 16 12/07/24 15:19 Blood Pressure 217/99 H 12/07/24 15:19 Pulse Oximetry 98 12/07/24 15:19 Oxygen Delivery Method Room Air 12/07/24 15:19 Temperature 97.6 F 12/07/24 15:19 Pulse Rate 60 12/07/24 16:35 Respiratory Rate 16 12/07/24 16:35 Blood Pressure 155/79 H 12/07/24 16:35 Pulse Oximetry 98 12/07/24 16:35 Oxygen Delivery Method Room Air 12/07/24 15:19 MDM - Fall MDM Narrative Medical decision making narrative: This patient comes in for evaluation of injuries from a fall that occurred prior to arrival. CT imaging of her head shows no intracranial findings but she does have a fracture of the left orbital floor that is not entrapping any orbital muscles and has only minimal displacement. X-ray imaging of her right lower extremity is negative. The patient is okay to be discharged home. I did provide a prescription for Toradol. Imaging Data XR R Tib/Fib: Radiologist's impression: No acute osseous injuries or abnormalities are noted. CT scan - head: Radiologist's impression: 1. No acute intracranial hemorrhage. 2. Left orbital floor fracture with no entrapment of the rectus muscle. Traumatic left maxillary sinus air-fluid level. Discharge Plan Discharge Clinical Impression: Fracture of orbital floor Patient Disposition: Home, Self-Care Condition: Stable Additional Instructions: Take medication as needed and directed. Activity as tolerated. Follow up with MD return if worsening. Prescriptions: New ketorolac 10 mg tablet 10 mg PO TID 5 Days Qty: 15 0RF No Action atorvastatin 20 mg tablet 20 mg PO DAILY (DME) OneTouch Ultra Test Strip MISCELLANEOUS DAILY metformin 1,000 mg tablet 1,000 mg PO BID hydrochlorothiazide 12.5 mg capsule 12.5 mg PO DAILY losartan 100 mg tablet 100 mg PO DAILY (DME) lancets [OneTouch Delica Plus Lancet] 33 gauge misc MISCELLANEOUS DAILY Jardiance 10 mg tablet 10 mg PO DAILY Follow Up/Referrals: Marion Young MD [Primary Care Provider] - Stand Alone Forms: [employer] Info Instructions
--- OUTSIDE RECORDS SUMMARY | 2024-12-07 16:04 | XMS_ITS | Encounter Summary ---
Author Organization [facility] Address [address] [address] Care Team Providers Care Corn Miller Name Role Phone Osmin Cain MD Primary Care Provider [phone] Encounter Details Date Type Department Care Team [...] on filedocumented in this encounter Care Teams Corn Miller Relationship Specialty [place] [address] [place] [address] PCP - General Internal Medicine 06/07/13 documented as of this encounter
--- OUTSIDE RECORDS SUMMARY | 2024-12-07 16:04 | XMS_ITS | Clinical Summary ---
Author Organization [place] [facility] Address [address] [place] [address]. [place] [address] Care Team Providers Care Authorizer Name Role Phone Marion Young MD Primary Care Provider [phone] Allergies No known active allergies Medications Atorvastatin [...] on file Legal Sex Female 3:32 AM [facility] Gender Identity Not on file Sexual Orientation Not on file Last Filed Vital Signs Vital Sign Reading Time Taken Comments Blood Pressure 158/79 08/10/2024 5:32 PM [facility] Pulse 75 08/10/2024 5:32 PM [facility] Temperature 36.3 C (97.4 F) 08/10/2024 10:19 AM [facility] Respiratory Rate 18 08/10/2024 5:32 PM [facility] Oxygen Saturation 98% 08/10/2024 5:32 PM [facility] Inhaled Oxygen Concentration - - Weight 88.1 kg (194 lb 3.6 oz) 08/10/2024 10:19 AM [facility] Height 157.5 cm (5' 2) 08/10/2024 10:19 AM [facility] Body Mass Index 35.52 08/10/2024 10:19 AM [facility] Plan of Treatment Health Maintenance Due Date [...] BASIC METABOLIC PANEL STAT 08/10/2024 10:26 AM [facility] from Last 3 Months or Most Recently Relevant to Health Maintenance Results * (ABNORMAL) Basic metabolic panel (BMP) (08/10/2024 10:26 AM [facility]) Sodium 142 135 - 145 mmol/L 08/10/2024 10:58 AM [facility] Potassium 4.6 3.4 - 5.3 mmol/L 08/10/2024 10:58 AM [facility] Chloride 105 98 - 107 mmol/L 08/10/2024 10:58 AM [facility] Carbon Dioxide (CO2) 24 22 - 29 mmol/L 08/10/2024 10:58 AM [facility] Anion Gap 13 7 - 15 mmol/L 08/10/2024 10:58 AM [facility] Urea Nitrogen 15.7 8.0 - 23.0 mg/dL 08/10/2024 10:58 AM [facility] Creatinine 0.74 0.51 - 0.95 mg/dL 08/10/2024 10:58 AM [facility] GFR Estimate 89 >60 mL/min/1.7 3m2 08/10/2024 10:58 AM [facility] Comment:eGFR calculated us2020 CKD-EPI equation. Calcium 9.9 8.8 - 10.4 mg/dL 08/10/2024 10:58 AM [facility] Comment:Reference intervals for this test were updated on 02/29/2024 to reflect our healthy population more accurately. There may be differences in the flagging of prior results with similar values performed with this method. Those prior results can be interpreted in the context of the updated reference intervals. Glucose 186(H) 70 - 99 mg/dL 08/10/2024 10:58 AM [facility] Blood STRUCTURE OF LEFT UPPER LIMB / Unknown Venipuncture / Unknown 08/10/2024 10:26 AM [facility] 08/10/2024 10:36 AM [facility] us Evy Clarke MD LAB - BLOOD ORDERABLES Fin al Result LABORATORY [facility] [address] [facility] (1st floor, no room number) [place] [address], [facility] from Last 3 Months or Most Recently Relevant to Health Maintenance Insurance [employer] MEDIC[employer]VANTAGE Care Teams Authorizer Relationship Specialty [place] [address] [place] [address] PCP - General Family Practice 06/13/17
--- OUTSIDE RECORDS SUMMARY | 2024-12-07 16:04 | XMS_ITS | Encounter Summary ---
Author Organization [facility] Address [address], [place] [address] Care Team Providers Care Driller Brake Lining Name Role Phone Osmin Cain MD Primary Care Provider [phone] Encounter Details Date Type Department Care Team [...] as of this encounter Progress Notes * [facility], PROVIDER - 02/07/2013 12:00 AM CDT documented in this encounter Plan of Treatment Not on file documented as of this encounter Visit Diagnoses Not on filedocumented in this encounter Care Teams Driller Brake Lining Relationship Specialty [place] [address] [place] [address] PCP - General Internal Medicine 06/07/13 documented as of this encounter
--- OUTSIDE RECORDS SUMMARY | 2024-12-07 16:05 | XMS_ITS | Clinical Summary ---
Author Organization [employer] Address [address] [place] [address] Care Team Providers Care Bronze Chaser Name Role Phone Marion Young MD Primary Care Provider Debby Quijano MD Unavailable Unavailab Sissy Austin Unavailable [phone] Shayy Schmidt DO Unavailable [phone] Allergies No known active allergies Medications IBUPROFEN [...] with a meal. 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, without long-term current use of insulin (HC) USE TO TEST BLOOD GLUCOSE ONE TIME DAILY 100 Each 3 024 Active blood sugar diagnostic (BandAppTouch Ultra Test) stripIndications:Ty pe 2 diabetes mellitus [...] Department Care Team Description 12/07/2024 Nurse Triage [facility] [address] [place] [address] Marion Young MD Neurologic Problem (Fall, hit head, numbness to right side of face, leg injury) 12/04/2024 8:00 AM CDT Office Visit [facility] [address] [place] [address] Marion Young MD Diabetes 12/04/2024 Travel 12/03/2024 Refill [facility] [address] [place] [address] Marion Young MD Refill Request (Jardiance) 11/21/2024 Refill [facility] [address] [place] [address] Marion Young MD Refill Request (Losartan) 10/12/2024 Orders Only [facility] Scanner 1 scan: (1-Ord) [facility], 10/12/2024 10/09/2024 8:41 AM ABSORPTION PLANT OPERATOR HELPER - 10/09/2024 11:59 PM ABSORPTION PLANT OPERATOR HELPER Hospital Encounter [facility] [place] [address] [place] [address] Marion Young MD Finkel, Joann M, PT 10/09/2024 Travel 10/05/2024 Refill [facility] [address] [place] [address] Marion Young MD Refill Request (Jardiance, Hydrochlorothiazide ) 09/25/2024 7:54 AM ABSORPTION PLANT OPERATOR HELPER - 09/25/2024 11:59 PM ABSORPTION PLANT OPERATOR HELPER Hospital Encounter [facility] [place] [address] [place] [address] Marion Young MD Finkel, Joann M, PT 09/25/2024 Travel 09/13/2024 9:17 AM ABSORPTION PLANT OPERATOR HELPER - 09/13/2024 11:59 PM ABSORPTION PLANT OPERATOR HELPER Hospital Encounter [facility] [place] [address] [place] [address] Marion Young MD Finkel, Joann M, PT 09/13/2024 Travel 09/08/2024 Refill [facility] [address] [place] [address] Marion Young MD Refill Request (Metformin) from [...] on file Legal Sex Female 5:25 AM ABSORPTION PLANT OPERATOR HELPER Gender Identity Not on file Sexual Orientation [...] M Vag Matheau 11/11 Term F Vag Mrayse 04/07 Term F Vag Laura Last Filed [...] Description 06/04/2025 8:40 AM CDT Office Visit [facility] [address] [place], [place] [id number] [place] [address] [place], [place] [phone] Health Maintenance Due Date Last Done Comments [...] 02/23/2022, Additional history exists Fecal testing sDNA-FIT ([place] guard) for age 45-75 03/05/2026 03/05/2023 Tetanus [...] insulin (HC) SCAN-EYE EXAM 10/12/2024 12:00 AM ABSORPTION PLANT OPERATOR HELPER XR MAMMO SIMONE BILAT SCREEN Routine 05/10/2024 9:12 AM CDT Visit for screening mammogram SDNA-FIT EXTERNAL (COLOGUARD) Routine 03/05/2023 8:35 AM CDT Screen for colon cancer XR DXA BONE DENSITY 2 SITES AXIAL Routine 07/28/2021 3:46 PM ABSORPTION PLANT OPERATOR HELPER Intraductal carcinoma in situ of right breast ANTI HCV Routine 08/03/2018 3:16 PM ABSORPTION PLANT OPERATOR HELPER Need for hepatitis C screening test from Last 3 Months or Most Recently Relevant to Health Maintenance Results * URINE ALBUMIN TO CREATININE RATIO, RANDOM (12/04/2024 8:00 AM CDT) ALB RAND URINE 13.9 mg/L 12/04/2024 5:37 PM CDT [facility] CREATININE,URIN E 1.00 g/L 12/04/2024 5:37 PM CDT [facility] ALBUMIN TO CREATININE RATIO,RAND UR 13.9 <30.0 mg/g creat 12/04/2024 5:37 PM CDT [facility] Urine URINE SPECIMEN / Unknown Non-Blood / Unknown 12/04/2024 8:00 AM CDT 12/04/2024 8:00 AM CDT [facility] - 12/04/2024 5:37 PM CDT If Albumin to Creatinine Ratio is elevated, consider the following: Elevations seen with incipient nephropathy associated with diabetes mellitus or hypertension. Stress, exercise,hematuria, and urinary tract infection may also produce elevated results. If clinically indicated, confirm with 24 Hour Albumin to Creatinine Ratio. Marion Young MD URINE Final R esult [facility] [address] [place] [address], * (ABNORMAL) LIPID PANEL W REFLEX MEASURED [...] estimation of LDL-C. Nickolas SS et al. QUINCY. 2013;310(19): 8041-8932 (http://education.[employer].Results Scorecard/faq/MGJ489) CHOL/HDLC RATIO 3.6 <5.0 (calc) [facility] [...] CHEMISTRY Final R esult Performing Organization Address City/[facility]/ZIP Co de Phone Number [employer] [facility] [address] [place] [address], [place] [phone] [facility] [address] [place] [address] * (ABNORMAL) BASIC METABOLIC PANEL (12/04/2024 7:52 AM CDT) GLUCOSE 136(H) 65 - 99 mg/dL [facility] Comment: Fasting reference interval For someone without known diabetes, a glucose value >125 mg/dL indicates that they may have diabetes and this should be confirmed with a follow-up test. UREA NITROGEN (BUN) 17 7 - 25 mg/dL [facility] CREATININE 0.64 0.50 - 1.05 mg/dL [facility] EGFR 97 > OR = 60 mL/min/1. 73m2 [facility] BUN/CREATININE RATIO SEE NOTE: 6 [...] Gm CALCIUM 9.4 8.6 - 10.4 mg/dL [facility] Blood BLOOD SPECIMEN / Unknown 12/04/2024 7:52 AM CDT 12/04/2024 7:52 AM CDT Marion Young MD CHEMISTRY Final R esult [employer] [facility] [address] [place] [address], [place] [phone] [facility] [address] [place] [address] * (ABNORMAL) HEMOGLOBIN A1C MONITORING (POCT) (12/04/2024 7:51 AM CDT) POC HEMOGLOBIN A1C 6.6(H) <6.0 % OF TOTAL HGB [facility] Comment: Any point of care results exhibiting inconsistency with the patient's clinical status should be repeated using a different testing method. Blood BLOOD SPECIMEN / Unknown 12/04/2024 7:51 AM CDT 12/04/2024 7:51 AM CDT us Marion Young MD CHEMISTRY Final R esult [facility] [address] [place] [address], [facility] [address] [place] [address] * SCAN-EYE EXAM (10/12/2024 12:00 AM ABSORPTION PLANT OPERATOR HELPER) us Scanner OTHER Final Result * XR [...] care provider. XR MAMMO SIMONE BILAT SCREEN [[id number]] CLINICAL HISTORY: This is an asymptomatic 63 y.o. patient. INDICATION FOR EXAM: Mammogram Screening. TECHNIQUE: CC & MLO views were obtained. This study was evaluated with the assistance of Computer-Aided Detection. Breast Tomosynthesis was used in interpretation. COMPARISON FILMS: Yes 04/27/23 [facility] 02/23/22 [facility] FINDINGS: There are scattered areas of fibroglandular density. No suspicious masses or microcalcifications. There are post treatment changes of right breast. Marion Young MD MAMMO Final R esult * SDNA-FIT EXTERNAL (COLOGUARD) (03/05/2023 8:35 AM CDT) NONINV COLON CA DNA+OCC BLD SCRN STL-IMP Negative Negative 03/13/2023 1:15 AM CDT [facility] (CLIA #:[id number]) Comment: NEGATIVE TEST RESULT. A negative Cologuard [...] Marie. et al, N Engl J Med 2014;370(14):7355-9310) The normal value (reference range) for this assay is negative. COLOGUARD RE-SCREENING RECOMMENDATION: Periodic colorectal cancer screening is an important part of preventive healthcare for asymptomatic individuals at average risk for colorectal cancer. Following a negative Cologuard result, the [place] Cancer Society and U.S. Multi-Society Task Force screening guidelines recommend a Cologuard re-screening interval of 3 years. References: [place] Cancer Society Guideline for Colorectal Cancer Screening: https://www.cancer.org/cancer/ngjus-zommyv-bowddo/cacmtqsgq-ajcdbiwpu-stcbtcw/ac s-rec ommendations.html.; Chan DK, Idalia CORBETT, Khai GARCIA, Colorectal Cancer Screening: Recommendations for Physicians and Patients from the U.S. Multi-Society Task Force on Colorectal Cancer Screening , Am J Gastroenterology 2017; 112:4929-5223. TEST DESCRIPTION: Composite algorithmic analysis of stool [...] Marie. et al, N Engl J Med 2014;370(14):2224-7982.) Cologuard may produce a false negative or false positive result (no colorectal cancer or precancerous polyp present at colonoscopy follow up). A negative Cologuard test result does not guarantee the absence of CRC or advanced adenoma (pre-cancer). The current Cologuard screening interval is every 3 years. ([place] Cancer Society and U.S. Multi-Society Task Force). Cologuard performance data in a 10,000 patient pivotal study using colonoscopy as the reference method can be accessed at the following location: www.[employer].Results Scorecard/results. Additional description of the Cologuard test process, warnings and precautions can be found at www.[employer]woll[employer].com. Stool specimen (specimen) (Rectum) 03/05/2023 8:35 AM CDT 03/06/2023 5:27 PM CDT us Marion Magali Hannah MD URINE Final R esult [facility] (CLIA #:[id number]) [address] [place] [address], * XR DXA BONE DENSITY 2 SITES AXIAL (07/28/2021 3:46 PM ABSORPTION PLANT OPERATOR HELPER) Anatomical Region Laterality Modality Spine, HIPS, HIPL, HIPR Computed Radiography 07/28/2021 3:46 PM ABSORPTION PLANT OPERATOR HELPER Narrative 07/28/2021 9:53 PM ABSORPTION PLANT OPERATOR HELPER For Patients: As a result of the Century Cures Act, medical imaging exams and procedure reports are released immediately into your electronic medical record. You may view this report before your referring provider. If you have questions, please contact your health care provider. EXAM: XR DXA BONE DENSITY 2 SITES AXIAL LOCATION: [facility] DATE/TIME: 07/28/2021 3:46 PM INDICATION: [...] DENSITY 2 SITES AXIAL LOCATION: [facility] DATE/TIME: 07/28/2021 3:46 PM INDICATION: [...] sult * ANTI HCV (08/03/2018 3:16 PM ABSORPTION PLANT OPERATOR HELPER) HEPATITIS C ANTIBODY Non-React felix Non-React felix 08/04/2018 7:50 PM ABSORPTION PLANT OPERATOR HELPER [facility] Comment:Antibodies to HCV no t detected; does not exclude the possibility of exposure to HCV. Blood BLOOD SPECIMEN / Unknown Butterfly / Unknown 08/03/2018 3:16 PM ABSORPTION PLANT OPERATOR HELPER 08/03/2018 3:16 PM ABSORPTION PLANT OPERATOR HELPER us Marion Young MD SEND OUTS Final R esult [facility] [address] [place] [address], [place] from Last 3 Months or Most Recently Relevant to Health Maintenance Insurance [facility] [employer] Advance Directives * Full Code (Latest Code Status on File) Date Activated Date Inactivated Comments 04/22/2021 12:48 PM 04/22/2021 7:18 PM Question Answer Comments Code Status Discussion: Not Discussed * Full Code Date Activated Date Inactivated Comments 04/10/2021 8:56 AM 04/10/2021 6:19 PM Question Answer Comments Code Status Discussion: Not Discussed Care Teams Bronze Chaser Relationship Specialty [place] [address] [place] [address] PCP - General Family Practice 07/20/16 [place] [address] [place] [address] Surgery - General 03/11/21 Sissy Nam [employer]BS [address] [place] [address] Oncology 05/09/21 [place] [address] Radiation Oncology 05/09/21
--- OUTSIDE RECORDS SUMMARY | 2024-12-07 16:05 | XMS_ITS | Clinical Summary ---
Author Organization [facility] Address [address], [place] [address] Care Team Providers Care Buy Boat Operator Name Role Phone Osmin Cain MD Primary Care Provider [phone] Source Comments You are receiving this document as you are listed as the primary care provider,follow-up provider, or the patient has been referred to you for consultation.This is in compliance with the Medicare and[facility] EHR Incentive Program,which states Providers who transition [...] Relevant to Health Maintenance Results * COLONOSCOPY [[id number]] (02/07/2013 8:30 AM CDT) 02/07/2013 8:30 AM [...] years old. Procedure Code(s): --- Professional --- 25474, Colonoscopy, flexible, proximal to splenic flexure; with removal of tumor(s), polyp(s), or other lesion(s) by snare technique 58520, 59, Colonoscopy, flexible, proximal to splenic flexure; with directed submucosal injection(s), any substance Diagnosis Code(s): --- Professional --- 211.3, Benign neoplasm of colon 455.0, Internal hemorrhoids without mention of complication 792.1, Nonspecific abnormal findings in stool contents 562.10, Diverticulosis of colon (without mention of hemorrhage) CPT (R) 2011 [employer]. All Rights Reserved. The codes documented in this report are preliminary and upon hospital coder review may be revised to meet current [...] years old. Procedure Code(s): --- Professional --- 07271, Colonoscopy, flexible, proximal to splenic flexure; with removal of tumor(s), polyp(s), or other lesion(s) by snare technique 06742, 59, Colonoscopy, flexible, proximal to splenic flexure; with directed submucosal injection(s), any substance Diagnosis Code(s): --- Professional --- 211.3, Benign neoplasm of colon 455.0, Internal hemorrhoids without mention of complication 792.1, Nonspecific abnormal findings in stoolcontents 562.10, Diverticulosis of colon (without mention of hemorrhage) CPT (R) 2011 [employer]. All Rights Reserved. The codes documented in this report are preliminary and upon hospital coder review may be revised to meet current compliance requirements. Attending Participation: Jassi Sierra MD 02/07/2013 9:00 AM Number of Addenda: 0 Note Initiated On: 02/07/2013 8:30 AM Jassi Sierra MD DIGESTIVE CARE Edited Res ult - Final GI ([employer]OVATION) [place], [place] * (ABNORMAL) LIPID PANEL AND DIRECT LDL(IF NEEDED) (11/02/2012 9:53 AM CDT) Cholesterol 204(H) 0 - 199 mg/dl [facility] Triglyceride 225(H) 0 - 149 mg/dl [facility] HDL 47 >40 mg/dl [facility] LDL, Calc. 112 0 - 129 mg/dl [facility] Non HDL Chol, Calc 157 mg/dl [facility] Hours Fasting 14 hours [facility] 11/02/2012 9:53 AM CDT 11/02/2012 10:06 AM CDT us Sabine Ferrell MD LAB_1 Final Res ult [facility] [address] [phone] from Last 3 Months or Most Recently Relevant to Health Maintenance Insurance [facility] Care Teams Buy Boat Operator Relationship Specialty [place] [address] [place] [address] PCP - General Internal Medicine 06/07/13
== END 2024-12-07 17:59 | disposition home or self-care (01) ==
PROVIDERS: Emergency Provider Emergency Medicine Emergency Medical Services; PCP Family Medicine
DX: S02.32XA Fracture of orbital floor, left side, initial encounter for closed fracture (principal); M79.661 Pain in right lower leg; W01.0XXA Fall on same level from slipping, tripping and stumbling without subsequent striking against object, initial encounter; Y93.02 Activity, running
CPT/HCPCS: 70450; 73590; 99284